=== PATIENT | female | born 1990 | race Caucasian/White ===

== ENCOUNTER → 2023-10-19 07:51 | Outpatient (REF) | payer BC, SELFPAY | LOC: HWRAD 07:51 | PROVIDERS: ATTENDING PHYSICIAN Family Medicine | DX: R10.11 Right upper quadrant pain (principal); K80.20 Calculus of gallbladder without cholecystitis without obstruction | CPT/HCPCS: 76700 ==

== ENCOUNTER 2024-07-30 06:21 | Day surgery (SDC) | payer BC, SELFPAY ==
[2024-07-18 10:56] VITALS: BMI 44.9
[2024-07-18 11:20] LABS: Hematocrit 41.6 % (37.0-47.0); Mean Corp Hgb Conc. 33.7 g/dL (33.0-37.0); Mean Corpuscular Hgb 29.5 pg (27.0-31.0); Mean Corpuscular Volume 87.8 fL (81.0-99.0); Mean Platelet Volume 10.4 fL (7.4-10.4); Platelet Count 273 10^3/uL (130-400); Red Blood Cell Count 4.74 10^6/uL (4.20-5.40); Red Cell Dist. Width 13.6 % (11.5-14.5); White Blood Cell Count 6.9 10^3/uL (4.8-10.8)
[2024-07-18 12:26] LABS: ALT (SGPT) 25 U/L (0-35); AST (SGOT) 23 U/L (14-36); Albumin 4.4 g/dl (3.5-5.0); Alkaline Phosphatase 62 U/L (38-126); Blood Urea Nitrogen 13 mg/dl (7-17); Calcium 9.5 mg/dl (8.4-10.2); Carbon Dioxide 28 mmol/L (22-30); Chloride 106 mmol/L (98-107); Estimated Creatinine Clearance > 125 ml/min; Glucose 89 mg/dl (70-99); Potassium 4.4 mmol/L (3.5-5.1); Sodium 141 mmol/L (135-145); Total Bilirubin 0.6 mg/dl (0.2-1.3); Total Protein 7.3 g/dl (6.3-8.2); eGFR > 60.00
[2024-07-30] VITALS (11 sets, daily range): BP systolic 118–154; BP diastolic 66–99; BMI 44.9
[2024-07-30] MEDS: TYLENOL 1000 MG PO (07:01)
[2024-07-30] MEDS: TRANSDERM-SCOP 1 PATCH TRANSDERM (07:01)
[2024-07-30] MEDS: NORMOSOL-R/PLASMALYTE-A 1000 IV (07:02)
== END 2024-07-30 11:15 | disposition home or self-care (01) ==
LOC: SDS 06:21
PROVIDERS: ATTENDING PHYSICIAN Surgery; FAMILY PHYSICIAN Family Medicine
DX: K80.10 Calculus of gallbladder with chronic cholecystitis without obstruction (principal); E66.01 Morbid (severe) obesity due to excess calories; Z68.41 Body mass index [BMI] 40.0-44.9, adult; K76.0 Fatty (change of) liver, not elsewhere classified; E06.3 Autoimmune thyroiditis
CPT/HCPCS: 47563; 47379; 88304; 88307; 36415; 74300; 76000; 80053; 85027; 88313; A4300